=== PATIENT | male | born 1940 | race Caucasian/White ===

== ENCOUNTER 2017-01-03 21:13 | Emergency (ER) | payer MEDICARE | END 2017-01-03 22:59 | disposition home or self-care (01) | LOC: FER 21:13 | DX: T20.20XA Burn of second degree of head, face, and neck, unspecified site, initial encounter (principal); T23.251A Burn of second degree of right palm, initial encounter; T21.24XA Burn of second degree of lower back, initial encounter; T31.0 Burns involving less than 10% of body surface; M10.9 Gout, unspecified; Z23 Encounter for immunization; Z87.39 Personal history of other diseases of the musculoskeletal system and connective tissue; W40.1XXA Explosion of explosive gases, initial encounter; Y92.009 Unspecified place in unspecified non-institutional (private) residence as the place of occurrence of the external cause | CPT/HCPCS: 90471; 90715 ==